=== PATIENT | male | born 1990 | race American Indian/Alaskan Native ===

== ENCOUNTER 2021-09-30 22:00 | Emergency (ER) | payer OTHER ==
[2021-09-30 22:18] VITALS: BP 125/83; PULSE 94; TEMP 98; BMI 25.1
== END 2021-09-30 23:17 | disposition home or self-care (01) ==
LOC: JERFT 22:00
DX: T16.2XXA Foreign body in left ear, initial encounter (principal)
CPT/HCPCS: 99282-25

== ENCOUNTER 2022-03-25 14:14 | Emergency (ER) | payer OTHER ==
[2022-03-25 14:40] VITALS: TEMP 98.3; BMI 25.8
[2022-03-25] MEDS ORDERED: ONDANSETRON 4 MG/2 ML VIAL IVPUSH ONE (15:09)
[2022-03-25] MEDS ORDERED: SODIUM CHLORIDE 1,000 ML IV STA (15:09)
[2022-03-25] MEDS ORDERED: ONDANSETRON 4 MG/2 ML VIAL ONE (15:27)
[2022-03-25 15:40] LABS: BASO % 0.7 % (0-2.0); EOS % 1.7 % (0-4.5); HEMATOCRIT 42.8 % (35.4-49); HEMOGLOBIN 13.7 GM/dL (11.7-16.9); LYMPH % 18.3 % (8-40); MCH 25.5 pg (25.7-33.7); MCHC 32.1 g/dl (32.0-35.9); MEAN CELL VOLUME 79.3 fl (80-96); MONO % 8.9 % (3.8-10.2); NEUT % 70.4 % (42.8-82.8); PLATELET COUNT 222 10^3/uL (134-434); RDW 17.8 % (11.9-15.9); WHITE BLOOD COUNT 8.2 K/mm3 (4.0-10.0)
[2022-03-25 15:56] LABS: CALCIUM 9.6 mg/dL (8.5-10.1)
[2022-03-25 15:57] LABS: ALBUMIN 4.1 g/dl (3.4-5.0); BLOOD UREA NITROGEN 9.1 mg/dL (7-18)
[2022-03-25 16:00] LABS: CREATININE 0.8 mg/dL (0.55-1.3)
[2022-03-25 16:01] LABS: TOT PROT 8.1 g/dl (6.4-8.2)
[2022-03-25 16:02] LABS: BILIRUBIN,TOTAL 0.5 mg/dL (0.2-1)
[2022-03-25 16:35] LABS: PH,URINE 5.5 (5.0-8.0); URINE APPEARANCE CLEAR; URINE BILIRUBIN NEGATIVE (NEGATIVE); URINE COLOR YELLOW; URINE GLUCOSE (UA) NEGATIVE (NEGATIVE); URINE KETONE NEGATIVE (NEGATIVE); URINE LEUK ESTERASE NEGATIVE (NEGATIVE); URINE NITRITE NEGATIVE (NEGATIVE); URINE PROTEIN NEGATIVE (NEGATIVE); URINE UROBILINOGEN 0.2 mg/dL (0.2-1.0)
[2022-03-25 18:15] VITALS: BP 110/75; PULSE 80
== END 2022-03-25 18:36 | disposition home or self-care (01) ==
LOC: JER 14:14
PROC: 3E033GC Introduction of Other Therapeutic Substance into Peripheral Vein, Percutaneous Approach (ICD-10-PCS; principal; 2022-03-25)
PROC: 3E0337Z Introduction of Electrolytic and Water Balance Substance into Peripheral Vein, Percutaneous Approach (ICD-10-PCS; 2022-03-25)
DX: K52.9 Noninfective gastroenteritis and colitis, unspecified (principal)
CPT/HCPCS: 0241U-QW; 36415; 80053; 81003; 83690; 85025; 87086; 99284-25

== ENCOUNTER 2024-04-03 01:54 | Inpatient (IN) | payer SELFPAY ==
[2024-04-03] MEDS: SODIUM CHLORIDE 1,000 ML IV SCH (03:03)
[2024-04-03] MEDS ORDERED: DEXAMETHASONE SOD PHOSPHATE 10 MG/1 ML VIAL ONE (03:21)
[2024-04-03] MEDS: DEXAMETHASONE SOD PHOSPHATE 10 MG/1 ML VIAL IVPUSH ONE (03:23)
[2024-04-03 03:28] LABS: PH,URINE 5.5 (5.0-8.0); URINE APPEARANCE CLEAR; URINE BILIRUBIN NEGATIVE (NEGATIVE); URINE COLOR YELLOW; URINE GLUCOSE (UA) NEGATIVE (NEGATIVE); URINE KETONE NEGATIVE (NEGATIVE); URINE LEUK ESTERASE NEGATIVE (NEGATIVE); URINE NITRITE NEGATIVE (NEGATIVE); URINE PROTEIN NEGATIVE (NEGATIVE); URINE UROBILINOGEN 0.2 mg/dL (0.2-1.0)
[2024-04-03 03:31] LABS: BASO % 1.7 % (0-2.0); EOS % 3.5 % (0-4.5); HEMATOCRIT 35.9 % (35.4-49); HEMOGLOBIN 11.7 GM/dL (11.7-16.9); LYMPH % 39.6 % (8-40); MCH 23.4 pg (25.7-33.7); MCHC 32.4 g/dl (32.0-35.9); MEAN CELL VOLUME 72.2 fl (80-96); MEAN PLT VOLUME 7.4 fl (7.5-11.1); MONO % 14.4 % (3.8-10.2); NEUT % 40.8 % (42.8-82.8); PLATELET COUNT 239 10^3/uL (134-434); RBC 4.98 M/mm3 (4.00-5.60); RDW 19.6 % (11.9-15.9); WHITE BLOOD COUNT 5.8 K/mm3 (4.0-10.0)
[2024-04-03 03:33] LABS: PROTHROMBIN TIME (PATIENT) 11.5 SEC (9.7-13.0)
[2024-04-03 03:36] LABS: METHADONE, UR NEGATIVE (NEGATIVE); PHENCYCLIDINE,URINE NEGATIVE (NEGATIVE); URINE AMPHETAMINES NEGATIVE (NEGATIVE); URINE BENZODIAZEPINES NEGATIVE (NEGATIVE)
[2024-04-03 03:36] LABS: ACTIVATED PTT 29.6 SECONDS (25.2-36.5)
[2024-04-03 03:37] LABS: URINE BARBITURATES NEGATIVE (NEGATIVE)
[2024-04-03 03:45] LABS: CHLORIDE 111 mmol/L (98-107); POTASSIUM 4.2 mmol/L (3.5-5.1); SODIUM 141 mmol/L (136-145)
[2024-04-03 03:47] LABS: ALBUMIN 3.4 g/dl (3.4-5.0); ANION GAP 7 mmol/L (4-13); CALCIUM 8.4 mg/dL (8.5-10.1); CO2 23 mmol/L (21-32)
[2024-04-03 03:48] LABS: GLUCOSE,RANDOM 92 mg/dL (74-106)
[2024-04-03 03:49] LABS: BLOOD UREA NITROGEN 5.1 mg/dL (7-18)
[2024-04-03 03:50] LABS: SGPT/ALT 13 U/L (13-61)
[2024-04-03 03:51] LABS: CREATININE 0.7 mg/dL (0.55-1.3); SGOT/AST 45 U/L (15-37)
[2024-04-03 03:52] LABS: CHOLESTEROL 200 mg/dL (50-200)
[2024-04-03 03:53] LABS: BILIRUBIN,TOTAL 0.4 mg/dL (0.2-1); HDL CHOLESTEROL 55 mg/dL (40-60); LDL CHOLESTEROL (ONLY SJRH) 115 mg/dL (5-100)
[2024-04-03 03:54] LABS: ALK PHOS 77 U/L (45-117)
[2024-04-03 04:58] LABS: COCAINE, UR NEGATIVE (NEGATIVE); OPIATES, URI NEGATIVE (NEGATIVE)
[2024-04-03] MEDS: ASPIRIN 81 MG CHEWABLE TABLETS PO ONE (06:39)
[2024-04-03] MEDS: THIAMINE 100 MG TABLET PO SCH (11:10)
[2024-04-03] MEDS: FOLIC ACID 1 MG TABLET (FP) PO SCH (11:10)
[2024-04-03] MEDS: IBUPROFEN 400 MG TABLET (FP) PO PRN (12:44)
[2024-04-03 18:38] VITALS: BMI 22.9
[2024-04-03] MEDS: ATORVASTATIN CA 80 MG TABLET (FP) PO SCH (21:52)
[2024-04-04] MEDS ORDERED: ATORVASTATIN CA 40 MG TABLET (FP) PO SCH (08:57)
[2024-04-04] MEDS: ASPIRIN COATED 81 MG TABLET.EC PO SCH (09:59)
[2024-04-04] MEDS: ACETAMINOPHEN 325 MG TABLET (FP) PO ONE (13:38)
[2024-04-04 18:42] VITALS: BP 127/84; PULSE 71; RESP 16; TEMP 98
== END 2024-04-04 21:00 | disposition home or self-care (01) | DRG 811 ==
LOC: JER 01:54 → JERBED 06:07 → OBSVTOIN 06:07 → J2W 10:11
PROVIDERS: ADMIT Internal Medicine; ATTEND Internal Medicine
DX: T78.01XA Anaphylactic reaction due to peanuts, initial encounter (principal); F10.10 Alcohol abuse, uncomplicated; F17.200 Nicotine dependence, unspecified, uncomplicated; G25.81 Restless legs syndrome; G43.109 Migraine with aura, not intractable, without status migrainosus; H53.19 Other subjective visual disturbances; H53.2 Diplopia; H53.8 Other visual disturbances; M54.32 Sciatica, left side; R07.89 Other chest pain; R09.02 Hypoxemia; R20.2 Paresthesia of skin; X58.XXXA Exposure to other specified factors, initial encounter; Y93.9 Activity, unspecified; Y92.89 Other specified places as the place of occurrence of the external cause; Y99.9 Unspecified external cause status
CPT/HCPCS: 36415; 70450-TC; 70496-TC; 70498-TC; 70551-TC; 80053; 80061; 80307; 81003; 82550; 82553; 82607; 82746; 82962; 83036; 84484; 85025; 85610; 85730; 86850; 86900; 86901; 93005; 93010; 93306-TC; 93880-TC; 97116-GP; 97161-GP; 99285-25; J1100